=== PATIENT | male | born 1960 | race African-American/Black ===

== ENCOUNTER 2018-08-06 10:10 | Emergency (ER) | payer SELFPAY ==
[2018-08-06] MEDS ORDERED: Acetaminophen 325 MG TAB ONE (11:19)
[2018-08-06] MEDS ORDERED: Sodium Chloride 0.9% 1,000 ML ONE (11:19)
[2018-08-06 11:24] LABS: #Basophils 0.1 thou/uL (0.0-0.2); #Lymphocytes 0.9 thou/uL (1.20-3.40); #Monocytes 0.7 thou/uL (0.11-0.59); #Neutrophils 7.9 thou/uL (1.40-6.50); %Basophils 0.5 % (0.0-1.0); %Eosinophils 0.2 % (0.0-10.0); %Lymphocytes 9.5 % (21.0-51.0); %Monocytes 7.2 % (0.0-10.0); %Neutrophils 82.7 % (42.0-75.0); Hemoglobin 16.2 g/dL (14.0-18.0); Mean Corpuscular HGB CONC 31.7 g/dL (32.0-36.0); Mean Corpuscular Hemoglobin 27.2 pg (27.0-31.0); Mean Corpuscular Volume 85.7 fL (78.0-98.0); Mean Platelet Volume 5.4 fL (7.4-10.4); Platelet Count 568 thou/uL (130-400); RBC Distribution Width 12.7 % (11.5-14.5); Red Blood Cell (RBC) Count 5.95 mill/uL (4.70-6.10); White Blood Cell (WBC) Count 9.5 thou/uL (4.8-10.8)
[2018-08-06 11:42] LABS: ALT (SGPT) 21 U/L (8-55); AST (SGOT) 21 U/L (5-34); Albumin 4.1 g/dL (3.5-5.0); Alkaline Phosphatase 91 U/L (40-150); Anion Gap 17 mmol/L (10-20); BUN (Urea Nitrogen) 12 mg/dL (8.4-25.7); Bilirubin, Total 0.9 mg/dL (0.2-1.2); Calc. Creatinine Clearance 0 mL/min (70-130); Calcium 10.2 mg/dL (7.8-10.44); Carbon Dioxide 24 mmol/L (22-29); Chloride 94 mmol/L (98-107); Estimated GFR-MDRD 81; Globulin 3.4 g/dL (2.4-3.5); Glucose 101 mg/dL (70-105); Lipase 21 U/L (8-78); Potassium 4.1 mmol/L (3.5-5.1); Protein, Total 7.5 g/dL (6.0-8.3); Sodium 131 mmol/L (136-145)
--- NOTE | 2018-08-06 11:56 | CT ---
CT ABDOMEN AND PELVIS WITHOUT IV CONTRAST: Date: 08/06/18 Multiple axial tomograms obtained through abdomen and pelvis without IV enhancement. Multiplanar anamika nstruction. HISTORY: Left upper quadrant abdominal pain. No comparison. FINDINGS: Lung bases clear. Liver, spleen, and pancreas are unremarkable for an unenhanced study. Adrenal glands and kidneys are unremarkable. No hydronephrosis identified. Evaluation of the intra-abdominal structures and bowel loops are limited due to lack of intraperitone al fat and lack of enteric and IV contrast. Nonspecific small bowel distention without evidence of ob struction or dilatation. Numerous small bowel loops show fluid-filled distention. Stool throughout th e colon. Urinary bladder is distended, but appears unremarkable. Prostate is upper normal size. No ev idence of free fluid. The aorta is normal caliber. No definite mass or adenopathy. IMPRESSION: 1. Limited exam due to lack of oral and IV contrast and lack of intraperitoneal fat planes. Nonspeci fic fluid-filled loops of small bowel with mild small bowel distention noted. 2. There is a hyperdense foreign body measuring 1.2 cm within the right lower quadrant, probably wit hin the colon. Etiology is uncertain. This may represent an ingested foreign body. It could possibly represent an intact Pepto-Bismol tablet. There are other tiny densities in this region which may also represent Pepto-Bismol fragments. POS: JULEE
--- NOTE | 2018-08-06 11:58 | RAD ---
PA CHEST AND LEFT RIBS 5 VIEWS: Date: 08/06/18 HISTORY: Left rib pain. FINDINGS: Heart size is within normal limits. There are some calcified left hilar lymph nodes present. Lungs ap pear hyperexpanded. I do not see any definite acute fractures. There are some minimal cortical changes along the anterior aspect of the left 9th rib. This may be related to an old injury, but does not appear acute in natur e. IMPRESSION: 1. Slight irregularity to the anterior left 9th rib, possibly an old injury. This does not appear ac kev. 2. Lungs appear hyperexpanded. POS: TPC
[2018-08-06] MEDS ORDERED: Aspirin 325 MG TAB ONE (12:37)
== END 2018-08-06 12:48 | disposition left against medical advice (07) ==
LOC: NAV ERS 10:10
DX: I10 Essential (primary) hypertension (principal); R07.89 Other chest pain; F17.210 Nicotine dependence, cigarettes, uncomplicated
CPT/HCPCS: 74176; 80053; 83690; 84484; 85025; 93005; 96360; J7050

== ENCOUNTER 2018-09-14 16:35 | Emergency (ER) | payer SELFPAY ==
[2018-09-14 17:13] LABS: #Basophils 0.1 thou/uL (0.0-0.2); #Eosinphils 0.1 thou/uL (0.0-0.7); #Lymphocytes 1.1 thou/uL (1.20-3.40); #Monocytes 0.6 thou/uL (0.11-0.59); %Basophils 0.7 % (0.0-1.0); %Eosinophils 0.7 % (0.0-10.0); %Lymphocytes 14.5 % (21.0-51.0); %Monocytes 7.3 % (0.0-10.0); %Neutrophils 76.8 % (42.0-75.0); Hemoglobin 13.7 g/dL (14.0-18.0); Mean Corpuscular HGB CONC 30.6 g/dL (32.0-36.0); Mean Corpuscular Hemoglobin 26.2 pg (27.0-31.0); Mean Corpuscular Volume 85.8 fL (78.0-98.0); Mean Platelet Volume 5.1 fL (7.4-10.4); Platelet Count 690 thou/uL (130-400); RBC Distribution Width 12.9 % (11.5-14.5); Red Blood Cell (RBC) Count 5.22 mill/uL (4.70-6.10); White Blood Cell (WBC) Count 7.9 thou/uL (4.8-10.8)
[2018-09-14] MEDS ORDERED: Mag-Al Plus 1200 MG/1200 MG/120 MG/30 ML UDCUP ONE (17:21)
[2018-09-14] MEDS ORDERED: Pantoprazole 40 MG VIAL ONE (17:21)
--- NOTE | 2018-09-14 17:22 | RAD ---
XR Chest Pa Lat STANDARD History: [Chest pain] Comparison: Radiograph August 06, 2018 Findings: The lungs are hyperinflated. No pneumothorax or effusion. Cardiac silhouette and mediastina l contours are similar. Impression: No acute intrathoracic abnormality.
--- NOTE | 2018-09-14 17:24 | RAD ---
XR Abdomen 2 View History: [Abdominal pain] Comparison: CT abdomen and pelvis without contrast August 06, 2018 Findings: Moderate stool burden throughout the colon. Mild dextroscoliosis thoracolumbar junction. Evaluation on the upright view demonstrates no free air under the hemidiaphragms. No abnormal calcifi cations projecting over the renal shadows. Mild sclerosis right femoral head. Moderate vascular calcifications. Impression: Moderate stool burden throughout the colon.
[2018-09-14 17:30] LABS: ALT (SGPT) 37 U/L (8-55); AST (SGOT) 30 U/L (5-34); Alkaline Phosphatase 96 U/L (40-150); Anion Gap 16 mmol/L (10-20); BUN (Urea Nitrogen) 15 mg/dL (8.4-25.7); Bilirubin, Total 0.2 mg/dL (0.2-1.2); Calc. Creatinine Clearance 0 mL/min (70-130); Carbon Dioxide 24 mmol/L (22-29); Chloride 100 mmol/L (98-107); Estimated GFR-MDRD Greater than 90; Glucose 92 mg/dL (70-105); Lipase 19 U/L (8-78); Potassium 4.9 mmol/L (3.5-5.1); Sodium 135 mmol/L (136-145)
== END 2018-09-14 18:01 | disposition home or self-care (01) ==
LOC: NAV ERS 16:35
DX: K29.20 Alcoholic gastritis without bleeding (principal); K59.00 Constipation, unspecified; I10 Essential (primary) hypertension; F17.210 Nicotine dependence, cigarettes, uncomplicated
CPT/HCPCS: 71046; 74019; 80053; 83690; 84484; 85025; 93005; 96374; C9113